=== PATIENT | female | born 1970 | race Caucasian/White ===

== ENCOUNTER 2018-05-05 11:10 | Outpatient (CLI) | payer OTHER | END 2018-05-05 11:11 | disposition home or self-care (01) | LOC: BICMAMMO 11:10 | PROVIDERS: ATTEND Family Medicine | DX: Z12.31 Encounter for screening mammogram for malignant neoplasm of breast (principal) | CPT/HCPCS: 77063; 77067 ==

== ENCOUNTER 2018-05-19 08:03 | Outpatient (CLI) | payer OTHER ==
--- NOTE | 2018-05-19 09:41 | ULT ---
ULTRASOUND THYROID: HISTORY: E03.9. COMPARISON: None. TECHNIQUE: Rela-time, rizo scale, and color evaluation of the thyroid was performed. FINDINGS: The right lobe of the thyroid measures 4.3 x 1 x 1.3 cm. The left lobe measures 3.2 x 1 x 1.3 cm. T he isthmus is 2 mm in AP dimension. Small colloid cyst within the interpolar left lobe of the thyroid. No abnormal nodules within either lobe. IMPRESSION: Normal exam. POS: [facility]
--- NOTE | 2018-05-19 09:55 | ULT ---
TRANSVAGINAL AND DOPPLER PELVIC ULTRASOUND: HISTORY: Excessive menstruation. COMPARISON: None. TECHNIQUE: Real-time rizo-scale and color Doppler with spectral analysis of the pelvis is performed with a trans abdominal and transvaginal approach. FINDINGS: The uterus measures 10.7 x 6.4 x 5 cm. Endometrial thickness is 1 cm. The right ovary measures 2.9 x 2.1 x 2 cm, with a 2.1 cm cyst. The left ovary is not seen. Trace free fluid in the pelvis. There is a 1.7 cm fundal fibroid, as well as a right and left ureter and body fibroid, measuring 1.5 x 1.7 cm, respectively. The cervix is normal. IMPRESSION: Fibroid uterus; otherwise, unremarkable examination. POS: [facility]
== END 2018-05-19 08:04 | disposition home or self-care (01) ==
LOC: BICULT 08:03
PROVIDERS: ATTEND Specialist
DX: N92.1 Excessive and frequent menstruation with irregular cycle (principal); E03.9 Hypothyroidism, unspecified; D25.9 Leiomyoma of uterus, unspecified
CPT/HCPCS: 76536; 76856